=== PATIENT | female | born 1990 | race Caucasian/White ===

== ENCOUNTER 2020-08-08 09:08 | Emergency (ER) | payer BC ==
[2020-08-08] MEDS ORDERED: Lorazepam 2 MG/ML VIAL ONE ×2 (09:16→09:20)
[2020-08-08] MEDS ORDERED: Ondansetron PF 4 MG/2 ML Vial ONE (09:22)
--- NOTE | 2020-08-08 09:49 | CT ---
CT BRAIN WITHOUT CONTRAST: HISTORY: Altered mental status, seizure FINDINGS: No evidence of acute infarct, hemorrhage, midline shift or abnormal extra-axial fluid collections is seen. There is a nonspecific focal area of decreased attenuation in the left parasagittal frontal lobe white matter. The ventricular size is appropriate and the basilar cisterns are patent. There is soft tissue fullness the left side of the sella/suprasellar region with peripheral calcifications. The visualized paranasal sinuses and mastoid air cells are well aerated. Posttraumatic/postsurgical c hanges are seen in the squamosal portion of the right temporal bone. No acute osseous abnormalities noted. IMPRESSION: 1. No CT evidence of acute intracranial process. 2. 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 Further evaluation with MRI using the pituitary protocol is leo mmended. Report was called to Dr. Fawad Rodriguez over the telephone at 9:45 AM
[2020-08-08] MEDS ORDERED: niCARdipine 25 MG/10 ML VIAL ONE (12:01)
== END 2020-08-08 10:01 | disposition admitted as inpatient to this hospital (09) ==
LOC: ERS 09:08
DX: G40.89 Other seizures (principal)
CPT/HCPCS: 70450; J2060; J2405

== ENCOUNTER 2020-08-08 10:24 | Inpatient (IN) | payer BC ==
[~2020-08-08 10:24] MED LIST: Fentanyl 100 MCG/2 ML VIAL ONE; Ondansetron PF 4 MG/2 ML Vial IVP PRN; Oxytocin 10 UNITS/ML VIAL ONE; Promethazine HCl 25 MG/ML VIAL IM PRN; hydrALAZINE 20 MG/ML VIAL SLOW IVP PRN
[2020-08-08] MEDS ORDERED: Calcium Gluc 4.6 MEQ/10 ML (100 MG/ML) SLOW IVP PRN (10:25)
[2020-08-08] MEDS ORDERED: Magnesium Sulfate 20 gm/500 ml 20 GM/500 ML BAG ONE (10:27)
[2020-08-08] MEDS ORDERED: Magnesium Sulfate 20 gm/500 ml 20 GM/500 ML BAG IVPB SCH (10:30)
[2020-08-08] MEDS ORDERED: CEFAZOLIN 2 GM in Premix Bag 1 BAG IVPB SCH (10:30)
[2020-08-08] MEDS ORDERED: Bicitra 30 ML UDCUP PO SCH (10:30)
[2020-08-08] MEDS ORDERED: Labetalol HCl 100 MG/20 ML VIAL SLOW IVP PRN (10:38)
[2020-08-08] MEDS ORDERED: Labetalol HCl 100 MG/20 ML VIAL ONE ×2 (10:38→12:11)
[2020-08-08 10:57] VITALS: BMI 22.9
--- NOTE | 2020-08-08 11:08 | HP ---
PRIMARY OB: Sukh Glez DO, MS CHIEF COMPLAINT: Eclamptic seizure. HISTORY OF PRESENT ILLNESS: The patient is a 29-year-old G1, P0 female with an intrauterine at 32 weeks and 6 days, who presented to the emergency room with complaints of headache. There, she was noted to have blood pressures of 185 systolic. I was called down to meet them and to assess the patient by the Labor and Delivery team. Upon arrival, the patient was noted to be in a wheelchair, but did not appear well. Decision was made to take the patient to the emergency room bed and there to assess and stabilize the patient. Upon placement in the bed, the patient began seizing. There, she received a total of 6 g of magnesium, 60 mg of labetalol, 2 g of Ativan to stabilize her. There is a large team of individuals assessing. In the end, blood pressures were brought down into the 140s. Once stabilized, the patient was taken to CT for visualization of her brain, which demonstrated no acute findings; however, there was a possible mass that is recommended to be better evaluated with MRI pituitary protocol. The patient was brought to Labor and Delivery once stabilized and on 2 g/h maintenance dose Celestone and 12 mg of betamethasone. Her primary physician, Dr. Glez, has been updated. Most recent blood pressure is 165/90, heart rate of 102, saturating 97% on room air. In general, she is still postictal, but otherwise stable, lungs are clear. Fetus has a baseline in the 130s with moderate long-term variability. Tocometer without contractions. In looking at labs, blood was drawn in the emergency room, does not appear to make it to the lab. We have ordered a CMP, CBC, LDH, uric acid, and urine protein, which are all being redrawn now. CT of the brain again shows no acute findings, but does show a probable sellar/suprasellar mass. MRI using pituitary protocol recommended. of the patient reports that she began having headaches early this morning and was noted to have a blood pressure at home with 202 systolic and was counseled to come to the emergency room for evaluation. PAST MEDICAL HISTORY: Negative. PAST SURGICAL HISTORY: The patient had an excision of a optic nerve tumor. SOCIAL HISTORY: Denies drug, alcohol, or tobacco use. ALLERGIES: NO KNOWN DRUG ALLERGIES. MEDICATIONS: vitamins and iron. OB LABS: Blood type is O positive. Antibody screen is negative. VDRL nonreactive. Hepatitis B surface antigen is negative. HIV nonreactive. REVIEW OF SYSTEMS: Unattainable due to the patient's status. ASSESSMENT AND PLAN: The patient is a 29-year-old female with an intrauterine at 32 weeks and 6 days, eclamptic, and is now stabilized on magnesium. Plan at this time is to at noon if the patient remains stable. Fetus has a category 1 tracing at this moment. Job ID: [id number]
[2020-08-08] MEDS ORDERED: FLU VACC QS2020-21(6MOS UP)/PF 60 MCG/0.5 ML SYRINGE IM ONE (11:15)
[2020-08-08 11:24] LABS: Hemoglobin 13.5 g/dL (12.0-16.0); Mean Corpuscular HGB CONC 35.1 g/dL (32.0-36.0); Mean Corpuscular Hemoglobin 33.7 pg (27.0-31.0); Mean Corpuscular Volume 96.1 fL (78.0-98.0); Mean Platelet Volume 9.7 fL (7.4-10.4); Platelet Count 241 thou/uL (130-400); RBC Distribution Width 12.7 % (11.5-14.5); White Blood Cell (WBC) Count 11.9 thou/uL (4.8-10.8)
--- NOTE | 2020-08-08 11:26 | PDOC.LDPN ---
Labor & Delivery Progress Note - Subjective Subjective: other (resting) - Objective Abnormal vital signs: 160/100 General: resting FHT: late decelerations - Assessment (1) Eclampsia Code(s): O15.9 - ECLAMPSIA, UNSPECIFIED TO TIME PERIOD Current Visit: Yes Status: Acute (2) 32 weeks gestation of Code(s): Z3A.32 - 32 WEEKS GESTATION OF Current Visit: Yes Status: Acute Plan: other -: Patient stable but with severe BP, labetalol ordered @ bedside with total now @ 100mg IV. Discussed plan of care to OR for delivery with patient and her .
[2020-08-08] MEDS ORDERED: niCARdipine 25 MG in Sodium Chloride 0.9% 250 ML 240 ML IVPB SCH ×2 (11:30→12:00)
[2020-08-08 11:42] LABS: SARS-CoV-2 NAA Rapid Test Not Detected (NotDetected)
[2020-08-08 11:48] LABS: #Monocytes 0.5 thou/uL (0.11-0.59); #Neutrophils 10.8 thou/uL (1.40-6.50); %Basophils 0.2 % (0.0-1.0); %Eosinophils 0.3 % (0.0-10.0); %Monocytes 4.2 % (0.0-10.0); %Neutrophils 87.3 % (42.0-75.0); Hemoglobin 13.6 g/dL (12.0-16.0); Mean Corpuscular HGB CONC 34.7 g/dL (32.0-36.0); Mean Corpuscular Hemoglobin 33.3 pg (27.0-31.0); Mean Platelet Volume 9.9 fL (7.4-10.4); Platelet Count 238 thou/uL (130-400); RBC Distribution Width 12.6 % (11.5-14.5); Red Blood Cell (RBC) Count 4.07 mill/uL (4.20-5.40); White Blood Cell (WBC) Count 12.4 thou/uL (4.8-10.8)
[2020-08-08] MEDS ORDERED: diphenhydrAMINE 25 MG CAP PO PRN (11:53)
[2020-08-08] MEDS ORDERED: Naloxone HCl 0.4 mg/ml Vial IV PRN (11:53)
[2020-08-08] MEDS ORDERED: diphenhydrAMINE 50 MG/ML VIAL IM PRN (11:53)
[2020-08-08] MEDS ORDERED: fentaNYL Citrate/PF 2,000 MCG in Sodium Chloride 0.9% 60 ML IV PRN (11:53)
[2020-08-08] MEDS ORDERED: diphenhydrAMINE 50 MG/ML VIAL IVP PRN (11:53)
[2020-08-08] MEDS ORDERED: Zolpidem Tartrate 5 MG TAB PO PRN (11:53)
[2020-08-08] MEDS ORDERED: Promethazine HCl 25 MG/ML VIAL IM PRN (11:53)
[2020-08-08] MEDS ORDERED: Ondansetron PF 4 MG/2 ML Vial IVP PRN (11:53)
[2020-08-08 11:54] LABS: ALT (SGPT) 15 U/L (8-55); AST (SGOT) 17 U/L (5-34); Albumin 3.5 g/dL (3.5-5.0); Alkaline Phosphatase 153 U/L (40-110); Anion Gap 15 mmol/L (10-20); BUN (Urea Nitrogen) 8 mg/dL (7.0-18.7); Bilirubin, Total 0.3 mg/dL (0.2-1.2); Calc. Creatinine Clearance 142 mL/min (70-130); Calcium 10.8 mg/dL (7.8-10.44); Carbon Dioxide 20 mmol/L (22-29); Chloride 103 mmol/L (98-107); Estimated GFR-MDRD Greater than 90; Globulin 3.2 g/dL (2.4-3.5); Glucose 93 mg/dL (70-105); Protein, Total 6.7 g/dL (6.0-8.3); Sodium 134 mmol/L (136-145)
[2020-08-08] MEDS ORDERED: Meperidine HCl/PF 25 MG/ML VIAL SLOW IVP PRN (11:55)
[2020-08-08] MEDS ORDERED: HYDROmorphone 2 MG/ML VIAL SLOW IVP PRN (11:55)
[2020-08-08] MEDS ORDERED: L&D-Morphine 4 MG/ML VIAL SLOW IVP PRN (11:55)
[2020-08-08] MEDS ORDERED: Ondansetron HCl/PF 4 MG/2 ML Vial IVP PRN (11:55)
[2020-08-08] MEDS ORDERED: Communication Order-Pharmacy FS SCH (12:00)
--- NOTE | 2020-08-08 12:09 | PDOC.OPDEL ---
OB Operative/Delivery Note Delivery Dr/Surgeon: Newton Assist: Nisreen Pre-Delivery Diagnosis: other (eclampsia @ 32 weeks) Procedure/Post Delivery Dx: primary low transverse CS Weeks gestation: 32 Anesthesia: other (GETA) - Findings A Sex: female - Additional Findings/Plan Placenta delivered: manual removal findings: low transverse hysterotomy without extension, normal uterus, normal tubes, normal ovaries Estimated blood loss: 500ml Post delivery plan: recovery in LICU (recover in ICU with Nicardipnie drip and magnesium)
[2020-08-08 12:11] LABS: Syphilis Antibody Nonreactive (Nonreactive); Syphilis Antibody Index 0.05 S/CO (<1.00 Non-Reactive)
[2020-08-08] MEDS ORDERED: PROPOFOL 200 MG/20 ML VIAL ONE (12:11)
[2020-08-08] MEDS ORDERED: Succinylcholine 200 MG/10 ml SYRINGE FS ONE (12:11)
[2020-08-08] MEDS ORDERED: Lidocaine 1% PF 5 ML VIAL ONE (12:11)
[2020-08-08] MEDS ORDERED: Ondansetron PF 4 MG/2 ML Vial ONE (12:11)
[2020-08-08] MEDS ORDERED: Adacel (T-DAP) 0.5 ML SYRINGE IM ONE (12:16)
[2020-08-08] MEDS ORDERED: Calcium Gluconate 4.6 MEQ in Sodium Chloride 0.9% 100 ML IVPB PRN (12:16)
[2020-08-08] MEDS ORDERED: Bisacodyl 10 MG SUPP PR PRN (12:16)
[2020-08-08] MEDS ORDERED: HYDROcodone/Acetaminophen 5/325 mg Tablet PO PRN ×2 (12:16)
[2020-08-08] MEDS ORDERED: Acetaminophen 325 MG TAB PO PRN (12:16)
[2020-08-08] MEDS ORDERED: Lanolin Ointment 7 GM TUBE TOP PRN (12:16)
[2020-08-08] MEDS ORDERED: Simethicone Chewable 80 MG TAB PO PRN (12:16)
[2020-08-08] MEDS ORDERED: hydrALAZINE 20 MG/ML VIAL SLOW IVP PRN ×2 (12:16→19:34)
[2020-08-08] MEDS ORDERED: NS / Oxytocin 40 units/1000ml 1,000 ML IV SCH (12:16)
[2020-08-08 12:17] LABS: ALT (SGPT) 15 U/L (8-55); AST (SGOT) 19 U/L (5-34); Albumin 3.6 g/dL (3.5-5.0); Alkaline Phosphatase 156 U/L (40-110); Anion Gap 17 mmol/L (10-20); BUN (Urea Nitrogen) 7 mg/dL (7.0-18.7); Bilirubin, Total 0.4 mg/dL (0.2-1.2); CK (CPK) 39 U/L (29-168); Calc. Creatinine Clearance 144 mL/min (70-130); Carbon Dioxide 18 mmol/L (22-29); Chloride 104 mmol/L (98-107); Estimated GFR-MDRD Greater than 90; Globulin 2.9 g/dL (2.4-3.5); Glucose 88 mg/dL (70-105); Potassium 4.4 mmol/L (3.5-5.1); Protein, Total 6.5 g/dL (6.0-8.3); Sodium 135 mmol/L (136-145); Uric Acid 5.9 mg/dL (2.6-6.0)
[2020-08-08 12:17] LABS: Actual Bicarbonate (HCO3v) 22 mEq/L (22-28); Base Excess -7.3 mEq/L (-2.0 to +3.0)
[2020-08-08 12:20] LABS: Actual Bicarbonate (HCO3a) 23.7 mEq/L (22-28); Base Excess (BEa) -5.6 mEq/L (-2.0 to +3.0)
[2020-08-08 12:21] LABS: pH (Cord, venous) 7.18 (7.32-7.43)
[2020-08-08 13:49] LABS: HBSAg Index 0.14 S/CO (0-0.99); Hep B Surf Ag Non-Reactive S/CO (NonReactive)
--- NOTE | 2020-08-08 14:21 | OP ---
DATE OF PROCEDURE: 08/08/2020 PREOPERATIVE DIAGNOSIS: Eclampsia at 32 weeks. POSTOPERATIVE DIAGNOSIS: Eclampsia at 32 weeks, status post primary low-transverse section. SUPERVISOR [employer]: Shreyas Nielson MD. ANESTHESIA: GETA per Dr. Jung. OPERATIVE COMPLICATIONS: None. ESTIMATED BLOOD LOSS: 500 mL. OPERATIVE FINDINGS: 1. Low-transverse hysterotomy without extension. 2. Normal-appearing uterus, tubes, and ovaries bilaterally. 3. Small calcified placenta. 4. Female , 32 weeks to NICU. 5. Surgical sites hemostatic. DESCRIPTION OF PROCEDURE: The patient was taken back to the OR with IV fluids running. Once she was in the OR, the abdomen was prepped and draped in normal fashion for section. Surgeons were gowned and gloved and general anesthesia was obtained. Once general anesthesia was obtained, a Pfannenstiel skin incision was made with a scalpel. The skin incision was carried down through the subcutaneous tissue to the fascia. Once the fascia was reached, it was incised in the midline and extended laterally using curved Denise scissors. Royer clamps were placed at the superior border of the fascia, which was sharply and bluntly dissected off the rectus abdominis muscles in both caudad and cephalad direction. The rectus muscles and peritoneum were bluntly entered in the midline and stretched. An Fuentes O retractor was placed into the peritoneal cavity for retraction, visualization, and protection of the wound. A low-transverse hysterotomy was made with a scalpel. The hysterotomy was bluntly entered and stretched laterally using Bauer maneuver. Amniotomy was spontaneous with clear fluid noted. The infant was delivered without difficulty through the hysterotomy. The cord was doubly clamped and cut and handed off to the NICU team in attendance. Cord blood was collected. The placenta was delivered. The uterus was exteriorized, massaged firm, and cleared of clot and debris. The uterus was returned to the abdominal cavity and the fundus was noted to be firm. The hysterotomy was closed in 2 layers using Monocryl suture. After the double-layer closure was complete, the uterus was inspected and noted to be hemostatic. The hysterotomy was irrigated as well as paracolic gutters which were then suctioned dry. The hysterotomy was inspected again. No bleeding was noted. The Fuentes O retractor was then removed from the abdominal cavity. The rectus muscle and fascia were inspected and any areas of bleeding were controlled with Bovie cauterization. The rectus fascia was then reapproximated from the left to the right corner in a running fashion. After the fascia was reapproximated, the subcutaneous tissue was irrigated and dried. Any small areas of bleeding were controlled with Bovie cauterization. The subcutaneous layer was then reapproximated with plain gut suture. The skin was closed with 4-0 Monocryl and dressed with Dermabond dressing. After the patient was extubated, she was started on a Cardene drip per anesthesia orders as well as a COW BUYER. She will be transferred to the ICU for close monitoring of her hypertension and continued on magnesium through 24 hours . Job ID: [id number]
[2020-08-08] MEDS ORDERED: Lactated Ringer's 1,000 ML IV SCH (16:00)
[2020-08-08] MEDS: Ibuprofen 800 MG TAB PO SCH ×2 (16:18→22:45)
--- NOTE | 2020-08-08 18:04 | PDOC.EVN ---
Event Note - Event Note Event Note: Spoke w pt RN in ICU. Pt doing well, alert and stable, off nicardipine drip since 1700 approximately. May transfer to L and D this evening to continue PP recovery.
[2020-08-08] MEDS: Magnesium Sulfate 20 gm/500 ml 20 GM/500 ML BAG IVPB SCH ×2 (19:25→22:22)
[2020-08-08] MEDS: Docusate Calcium (SURFAK) 240 MG CAP PO SCH (20:17)
[2020-08-08] MEDS: Ferrous Sulfate 325 MG TAB PO SCH (20:18)
[2020-08-08] MEDS: Labetalol HCl 100 MG/20 ML VIAL SLOW IVP PRN (22:15)
--- NOTE | 2020-08-09 03:10 | OP ---
DATE OF PROCEDURE: 08/08/2020 PRIMARY OB: Dr. Sukh Glez. The patient is a 29-year-old female, who presented to the emergency room and experienced eclampsia. Following stabilization, the patient was transferred to Labor and Delivery and ultimately had a primary . I functioned as geological survey field assistant to Dr. Sukh Glez, who was the primary surgeon. Please refer to her note for complete details. Job ID: [id number]
[2020-08-09] MEDS: Labetalol HCl 100 MG/20 ML VIAL SLOW IVP PRN ×3 (04:36→08:38)
[2020-08-09] MEDS ORDERED: NIFEdipine XL 30 MG TAB PO SCH (05:45)
--- NOTE | 2020-08-09 05:51 | PDOC.EVN ---
Event Note - Event Note Event Note: Pt has required total 60mg labetalol iv over night. will start procardia xl 30mg daily, first dose now. current bp 149/89
[2020-08-09] MEDS: NIFEdipine XL 30 MG TAB PO SCH (07:00)
[2020-08-09] MEDS: Magnesium Sulfate 20 gm/500 ml 20 GM/500 ML BAG IVPB SCH (07:55)
[2020-08-09 08:04] LABS: Mean Corpuscular HGB CONC 34.6 g/dL (32.0-36.0); Mean Corpuscular Hemoglobin 33.2 pg (27.0-31.0); Mean Platelet Volume 9.2 fL (7.4-10.4); Platelet Count 233 thou/uL (130-400); RBC Distribution Width 12.9 % (11.5-14.5); Red Blood Cell (RBC) Count 3.62 mill/uL (4.20-5.40); White Blood Cell (WBC) Count 11.9 thou/uL (4.8-10.8)
[2020-08-09] MEDS: Ibuprofen 800 MG TAB PO SCH ×3 (08:38→23:30)
[2020-08-09] MEDS ORDERED: Prenatal Vitamin 1 TAB PO SCH (09:00)
--- NOTE | 2020-08-09 09:33 | PDOC.PP ---
Post Progress Note Post Day #: 1 Subjective: events of yesterday reviewed in detail (pt has no memory), minimal to no pain, no GARCIA or RUQ pain, no SOB PO intake tolerated: yes Flatus: yes Ambulation: yes Vital Signs (12 hours) Pulse BP Pulse Ox 08/09/20 08:38 87 171/103 H 08/09/20 07:48 87 171/103 H 08/09/20 07:00 87 171/103 H 08/09/20 05:03 87 161/99 H 08/09/20 04:36 84 171/95 H 08/08/20 22:59 98 08/08/20 22:15 80 170/95 H Weight Admit Weight 208 lb 15.971 oz Weight 155 lb 5.467 oz Most Recent Monitor Data Heart Rate from ECG 106 NIBP 140/94 NIBP BP-Mean 110 Respiration from ECG 14 SpO2 99 - Physical Examination Cardiovascular: RRR Respiratory: non-labored breathing Fundus firm & at: below umb Skin: CS incision dry & intact (dressing CDI) Neurological: no gross focal deficits Psychiatric: A&Ox3, normal affect Result Diagrams: 08/09/20 07:40 08/08/20 10:38 Additional Labs: Post Labs Hep Bs Antigen Non-Reactive S/CO (NonReactive) 08/08/20 10:37 Blood Type O POSITIVE 08/08/20 11:23 (1) Eclampsia Code(s): O15.9 - ECLAMPSIA, UNSPECIFIED TO TIME PERIOD Status: Acute (2) 32 weeks gestation of Code(s): Z3A.32 - 32 WEEKS GESTATION OF Status: Acute - Assessment/Plan POD 1 sp 1CS after eclamptic seizure. DC from ICU when nicardipine drip no longer needed. Labile BP in L and D, using IV labetalol and hydralazine PRN. P rocardia 30 XL ordered and given this AM. Continue Magnesium through 24hr PP minimum reviewed.
[2020-08-09] MEDS: Docusate Calcium (SURFAK) 240 MG CAP PO SCH ×2 (14:54→23:30)
[2020-08-09] MEDS: Ferrous Sulfate 325 MG TAB PO SCH (14:54)
[2020-08-09] MEDS ORDERED: hydrALAZINE 20 MG/ML VIAL SLOW IVP PRN (16:47)
[2020-08-09] MEDS ORDERED: HYDROcodone/Acetaminophen 5/325 mg Tablet PO PRN ×2 (16:47)
[2020-08-09] MEDS ORDERED: Bisacodyl 10 MG SUPP PR PRN (16:47)
[2020-08-09] MEDS ORDERED: Labetalol HCl 100 MG/20 ML VIAL SLOW IVP SCH (19:45)
[2020-08-09] MEDS: Sodium Chloride 0.9% 10 ML ONE (20:09)
[2020-08-10] MEDS ORDERED: Labetalol HCl 100 MG/20 ML VIAL SLOW IVP SCH ×2 (05:45→07:15)
[2020-08-10] MEDS: Ibuprofen 800 MG TAB PO SCH ×3 (05:46→21:29)
[2020-08-10] MEDS: Sodium Chloride 0.9% 10 ML ONE (05:46)
[2020-08-10] MEDS ORDERED: Sodium Chloride 0.9% 10 ML ONE (07:28)
[2020-08-10] MEDS: Labetalol HCl 100 MG/20 ML VIAL SLOW IVP SCH (08:10)
[2020-08-10] MEDS: NIFEdipine XL 30 MG TAB PO SCH (08:11)
[2020-08-10] MEDS: Prenatal Vitamin 1 TAB PO SCH (08:11)
--- NOTE | 2020-08-10 08:12 | PDOC.PP ---
Post Progress Note Post Day #: 2 Subjective: increased BP this AM w blurry vision w no GARCIA, tolerating PO, ambulating, pain controlled PO intake tolerated: yes Flatus: yes Ambulation: yes Vital Signs (12 hours) Temp Pulse Resp BP 08/10/20 07:21 66 08/10/20 07:15 66 179/88 H 08/10/20 06:45 66 168/95 H 08/10/20 06:15 69 177/94 H 08/10/20 05:46 87 08/10/20 05:35 72 178/91 H 08/10/20 05:20 98.0 F 87 16 178/100 H 08/09/20 23:45 99.1 F 78 16 134/85 Weight Admit Weight 208 lb 15.971 oz Weight 155 lb 5.467 oz Most Recent Monitor Data Heart Rate from ECG 106 NIBP 140/94 NIBP BP-Mean 110 Respiration from ECG 14 SpO2 99 - Physical Examination General: NAD Respiratory: non-labored breathing Abdominal: no distention Skin: CS incision dry & intact, no rash Neurological: no gross focal deficits Psychiatric: A&Ox3, normal affect Result Diagrams: 08/09/20 07:40 08/08/20 10:38 Additional Labs: Post Labs Hep Bs Antigen Non-Reactive S/CO (NonReactive) 08/08/20 10:37 Blood Type O POSITIVE 08/08/20 11:23 (1) Eclampsia Code(s): O15.9 - ECLAMPSIA, UNSPECIFIED TO TIME PERIOD Status: Acute (2) 32 weeks gestation of Code(s): Z3A.32 - 32 WEEKS GESTATION OF Status: Acute - Assessment/Plan POD2 sp 1CS @ 32 weeks for eclampsia. Continues to have labile BP that responded well yesterday to labetalol- just rec'd 60mg of IV labetalol for current BP. Procardia scheduled just now given, will add oral labetalol this AM as well. If C[employer] P[employer]ER [employer] SORTER symptoms will return to L and D for magnesium for seizure prophylaxis.
[2020-08-10] MEDS: Docusate Calcium (SURFAK) 240 MG CAP PO SCH ×2 (08:15→20:16)
[2020-08-10] MEDS: Labetalol 100 MG TAB PO SCH ×2 (08:23→20:17)
[2020-08-10] MEDS ORDERED: Adacel (T-DAP) 0.5 ML SYRINGE IM ONE (09:00)
[2020-08-11] MEDS: Ibuprofen 800 MG TAB PO SCH ×3 (05:07→21:16)
[2020-08-11] MEDS: Labetalol HCl 100 MG/20 ML VIAL SLOW IVP SCH (06:03)
[2020-08-11] MEDS: Labetalol 100 MG TAB PO SCH ×3 (07:51→21:16)
[2020-08-11] MEDS: Prenatal Vitamin 1 TAB PO SCH (07:51)
[2020-08-11] MEDS: NIFEdipine XL 60 MG TAB PO SCH (07:51)
[2020-08-11] MEDS: Docusate Calcium (SURFAK) 240 MG CAP PO SCH ×2 (07:52→21:16)
[2020-08-11] MEDS ORDERED: Labetalol HCl 100 MG/20 ML VIAL SLOW IVP PRN (07:59)
[2020-08-11] MEDS ORDERED: Labetalol 100 MG TAB PO SCH (08:00)
--- NOTE | 2020-08-11 08:22 | PRG ---
DATE OF SERVICE: 08/11/2020 SUBJECTIVE: The patient is a 29-year-old female, postop day #3 status post a primary for eclampsia. The patient's blood pressures have been continuing to spike into the severe range with her highest pressure in the last 24 hours recorded being 169/102 with 5 severe range pressures in the last 24 hours recorded. The patient otherwise is feeling well. She reports that she is having a good diuresis. She is tolerating a diet, voiding on her own, ambulating, having good pain control. Family members report that she is peed off so much weight that her physical appearance is drastically changed and return back to a more normal appearance for her. OBJECTIVE: VITAL SIGNS: Most recent blood pressure 146/91, pulse of 75, and respiratory rate of 18. GENERAL: She appears to be in no acute distress. She is alert, oriented, cooperative, and pleasant to interact with. HEENT: Head is normocephalic and atraumatic. ABDOMEN: Soft. Her incision is clean, dry, and intact. ASSESSMENT AND PLAN: The patient is a 29-year-old female, postop day #3 status post primary for eclampsia, still continuing to have severe spikes in her blood pressure. Currently, she is on labetalol 200 mg twice a day and 30 mg of Procardia XL daily. I have increased that to Procardia XL 60 mg once a day and continue with the labetalol 200 mg twice a day. She did receive IV labetalol earlier this morning [address] Hickman will be the oncoming physician. I will continue with management decisions. Job ID: [id number]
[2020-08-11] MEDS: Labetalol HCl 100 MG/20 ML VIAL SLOW IVP PRN (22:51)
[2020-08-12] MEDS ORDERED: Sodium Chloride 0.9% 10 ML ONE (00:28)
[2020-08-12] MEDS: Labetalol HCl 100 MG/20 ML VIAL SLOW IVP PRN (00:35)
[2020-08-12] MEDS ORDERED: cloNIDine 0.1 MG TAB PO PRN (01:44)
[2020-08-12] MEDS: Ibuprofen 800 MG TAB PO SCH ×3 (05:13→21:20)
[2020-08-12] MEDS ORDERED: Furosemide 10 MG/ML Oral Soln PO STA (07:33)
[2020-08-12] MEDS ORDERED: Furosemide 20 MG TAB PO SCH (07:45)
[2020-08-12] MEDS: Labetalol 100 MG TAB PO SCH ×2 (08:09→21:21)
[2020-08-12] MEDS: NIFEdipine XL 60 MG TAB PO SCH (08:09)
[2020-08-12] MEDS: Prenatal Vitamin 1 TAB PO SCH (08:10)
[2020-08-12] MEDS: Docusate Calcium (SURFAK) 240 MG CAP PO SCH ×2 (08:10→21:20)
[2020-08-13] MEDS: Ibuprofen 800 MG TAB PO SCH ×3 (05:05→21:06)
[2020-08-13] MEDS: NIFEdipine XL 90 MG TAB PO SCH (05:06)
--- NOTE | 2020-08-13 05:31 | PDOC.PP ---
Post Progress Note Post Day #: POD5 Subjective: Feels well, no c/o. BPs up again to 150/100's over night. PO intake tolerated: yes Flatus: yes Ambulation: yes Vital Signs (12 hours) Temp Pulse Resp BP BP Pulse Ox 08/13/20 05:06 60 08/13/20 04:50 60 150/100 H 08/13/20 01:10 80 150/92 H 08/12/20 21:21 76 146/88 H 08/12/20 19:40 98.1 F 82 12 120/80 99 Weight Admit Weight 94.8 kg Weight 70.462 kg Most Recent Monitor Data Heart Rate from ECG 106 NIBP 140/94 NIBP BP-Mean 110 Respiration from ECG 14 SpO2 99 - Physical Examination General: NAD Respiratory: non-labored breathing Abdominal: appropriately TTP Extremities: negative homans (B) Skin: CS incision dry & intact Neurological: no gross focal deficits Psychiatric: normal affect Result Diagrams: 08/09/20 07:40 08/08/20 10:38 Additional Labs: Post Labs Hep Bs Antigen Non-Reactive S/CO (NonReactive) 08/08/20 10:37 Blood Type O POSITIVE 08/08/20 11:23 - Assessment/Plan Cont. Labetalol 300 BID and increase Procardia XL to 90 QD. Watch closely.
[2020-08-13] MEDS ORDERED: NIFEdipine XL 90 MG TAB PO SCH (06:00)
[2020-08-13] MEDS: Prenatal Vitamin 1 TAB PO SCH (09:02)
[2020-08-13] MEDS: Docusate Calcium (SURFAK) 240 MG CAP PO SCH ×2 (09:02→21:05)
[2020-08-13] MEDS: Labetalol 100 MG TAB PO SCH ×2 (09:02→21:05)
--- NOTE | 2020-08-13 18:21 | PDOC.PP ---
Post Progress Note Post Day #: 5 Subjective: Doing well, resting. No GARCIA or visual changes. PO intake tolerated: yes Flatus: yes Ambulation: yes Vital Signs (12 hours) Temp Pulse Resp BP BP Pulse Ox 08/13/20 16:30 98.2 F 82 18 135/85 08/13/20 12:25 98.2 F 86 18 132/80 99 08/13/20 09:02 85 122/72 08/13/20 08:42 97.7 F 85 18 122/72 99 Weight Admit Weight 208 lb 15.971 oz Weight 155 lb 5.467 oz Most Recent Monitor Data Heart Rate from ECG 106 NIBP 140/94 NIBP BP-Mean 110 Respiration from ECG 14 SpO2 99 - Physical Examination General: NAD Respiratory: non-labored breathing Skin: CS incision dry & intact (sutured) Neurological: no gross focal deficits Psychiatric: A&Ox3, normal affect Result Diagrams: 08/09/20 07:40 08/08/20 10:38 Additional Labs: Post Labs Hep Bs Antigen Non-Reactive S/CO (NonReactive) 08/08/20 10:37 Blood Type O POSITIVE 08/08/20 11:23 (1) 32 weeks gestation of Code(s): Z3A.32 - 32 WEEKS GESTATION OF Status: Acute (2) delivery delivered Code(s): O82 - ENCOUNTER FOR DELIVERY WITHOUT INDICATION Status: Acute - Assessment/Plan Now POD5...BPs much better on labetolol 300mg po BID and Procardia 90mg xl. I have seen her at bedside and we discussed her condition. I feel that as she is now with improved BPs on new dosing, we can plan for DC in AM. Needs BP check 72 hrs after discharge. I will check vitals in AM.
--- NOTE | 2020-08-14 05:50 | PDOC.BPN ---
- Brief Progress Note Encounter Date: 08/14/20 Encounter Time: 05:45 Vitals reviewed: BPs are stable and acceptable for DC home. Home with meds as written.
[2020-08-14] MEDS: Ibuprofen 800 MG TAB PO SCH ×2 (06:04→13:53)
[2020-08-14] MEDS: NIFEdipine XL 90 MG TAB PO SCH (06:08)
--- NOTE | 2020-08-14 06:14 | DIS ---
DATE OF ADMISSION: 08/08/2020 DATE OF DISCHARGE: 08/14/2020 PRINCIPAL DIAGNOSES: 1. Eclampsia. 2. section delivered. 3. 32 weeks of gestation. HOSPITAL COURSE: In brief, this patient was admitted on August 08, [address] Nielson. The patient is a 29-year-old G1, P0, who was at 32 weeks and 6 days. She was noted to have blood pressures of 185 systolic when she arrived in the emergency room. She began to have eclampsia down in the emergency room. She was given 6 g of magnesium sulfate, 60 mg of labetalol, 2 g of Ativan to stabilize her. Diagnosis was made of eclampsia. After stabilization, she underwent a section per Dr. Glez on August 08, 2020. For full details, please turn to the operative note on that date. I was not involved with the patient's care until August 13, 2020 when she was postop day 5. I evaluated the patient on postop day 5 and noted that she was much improved and her blood pressures were now controlled with labetalol 300 mg p.o. b.i.d. and Procardia 90 mg XL daily. The plan was made to send her home on August 14, 2020 on the same blood pressure regimen knowing that her blood pressures were stable. She will have a followup in 72 hours, which is Saturday to recheck her blood pressures. Despite her initial eclampsia and ill condition on admission, the patient stabilized and was discharged home on postop day #6, which is August 14, 2020. Job ID: [id number]
[2020-08-14] MEDS: Labetalol 100 MG TAB PO SCH (09:55)
[2020-08-14] MEDS: Prenatal Vitamin 1 TAB PO SCH (09:56)
[2020-08-14] MEDS: Docusate Calcium (SURFAK) 240 MG CAP PO SCH (09:56)
[2020-08-14 10:18] VITALS: TEMP 98
[2020-08-14 13:22] VITALS: BP 118/64
== END 2020-08-14 17:05 | disposition home or self-care (01) | DRG 788 ==
LOC: L&D/OP 10:24 → L&D 10:25 → CCU 12:31 → L&D 22:15 → 3SW 08-09 18:51
PROVIDERS: ADMIT Obstetrics & Gynecology; ATTEND Obstetrics & Gynecology
PROC: 10D00Z1 Extraction of Products of Conception, Low, Open Approach (ICD-10-PCS; principal; 2020-08-08)
DX: O15.1 Eclampsia complicating labor (principal); Z3A.32 32 weeks gestation of pregnancy; Z37.0 Single live birth; Z20.828 Contact with and (suspected) exposure to other viral communicable diseases
CPT/HCPCS: 36415; 70450; 80053; 81003; 82550; 82805; 83615; 83735; 84550; 85025; 85027; 86780; 86850; 86900; 86901; 87340; 88307; 96365; 96374; 96375; 96376; 99285; J0360; J2060; J2405; J2704; J3010; J3475; J3490; U0002

== ENCOUNTER 2024-09-18 10:36 | Outpatient (CLI) | payer BC | END 2024-09-18 10:37 | disposition home or self-care (01) | LOC: SCSRAD 10:36 | PROVIDERS: ATTEND Physician Assistant | DX: S99.921A Unspecified injury of right foot, initial encounter (principal); S92.511A Displaced fracture of proximal phalanx of right lesser toe(s), initial encounter for closed fracture; S92.521A Displaced fracture of middle phalanx of right lesser toe(s), initial encounter for closed fracture ==